=== PATIENT | male | born 1965 | race Caucasian/White ===

== ENCOUNTER → 2018-04-10 13:13 | Outpatient (CLI) | payer MEDICARE, SELFPAY ==
[2018-04-10 13:50] LABS: Basophils % 0.4 % (0.1-2.0); Eosinophils # 0.1 K/mm3 (0.0-0.4); Eosinophils % 1.1 % (0.1-12.0); Hemoglobin 16.7 g/dL (14.1-18.0); Lymphocytes # 1.8 K/mm3 (0.7-4.5); Lymphocytes % 20.6 % (10-50); Mean Corpuscular HGB Conc 32.8 g/dL (31.8-35.4); Mean Corpuscular Hemoglobin 29.6 pg (27.0-31.2); Mean Corpuscular Volume 90.4 fl (80-94); Mean Platelet Volume 8.9 fl (7.4-10.4); Monocytes # 0.5 K/mm3 (0.1-1.0); Monocytes % 5.9 % (1.7-9.3); Neutrophils # 6.2 K/mm3 (1.8-7.8); Neutrophils % 72.2 % (37.0-80.0); Platelet Count 168 K/mm3 (142-424); Red Blood Count 5.64 M/mm3 (4.60-6.20); Red Cell Distribution Width 12.9 % (11.5-17.5); White Blood Count 8.6 K/mm3 (4.8-10.8)
[2018-04-10 14:23] LABS: Alanine Aminotransferase 50 U/L (12-78); Albumin Level 3.9 gm/dL (3.4-5.0); Albumin/Globulin Ratio 1.1 (1.1-1.8); Alkaline Phosphatase 118 U/L (46-116); Anion Gap 17.1 mEq/L (5-15); Aspartate Amino Transferase 36 U/L (15-37); Bilirubin,Total 0.5 mg/dL (0.2-1.0); Blood Urea Nitrogen 8 mg/dL (7-18); Calcium 8.7 mg/dL (8.5-10.1); Carbon Dioxide 24 mmol/L (21.0-32.0); Chloride 102 mmol/L (98-107); Chol/HDL Ratio 10.6 (1-3.5); Cholesterol 223 mg/dL (140-200); Creatinine,Serum 0.82 mg/dL (0.70-1.30); Estimated Glomerular Filt Rate 98 ml/min (>60); GFR (African American) 118 ML/MIN (>60); Globulin 3.7 gm/dl (1.3-3.2); Glucose 302 mg/dL (74-106); HDL Cholesterol 21 mg/dL (27-67); Potassium 4.1 mmoL/L (3.5-5.1); Sodium 139 mmol/L (136-145); Thyroid Stimulating Hormone 1.36 uIU/ml (0.358-3.740); Total Protein,Serum 7.6 gm/dL (6.4-8.2)
[2018-04-10 14:28] LABS: Triglycerides 577 mg/dL (30-200)
[2018-04-10 15:18] LABS: Hemoglobin A1C 8.6 % (0.0-7.0)
[2018-04-11 08:19] LABS: Microalbumin, Urine 15.3 ug/mL (Not Estab.)
== END ==
PROVIDERS: Visit Provider Nurse Practitioner Family
DX: I10 Essential (primary) hypertension (principal); R73.9 Hyperglycemia, unspecified; R53.83 Other fatigue; E55.9 Vitamin D deficiency, unspecified
CPT/HCPCS: 80053; 80061; 82043; 82570; 82652; 83036; 84436; 84443; 85025

== ENCOUNTER → 2018-05-23 07:21 | Outpatient (CLI) | payer MEDICARE, SELFPAY ==
--- NOTE | 2018-05-23 07:22 | NM_ITS ---
History and Indications: Diabetes, hyperlipidemia, tobacco use, family history, chest pain, shortness of breath, Procedure: Patient received a 0.4 mg of intravenous Lexiscan, resting heart rate was 78 blood pressure 153/89, with Lexiscan maximum heart rate achieved was 103 bpm which is less than 85% of the maximum predicted heart rate and a blood pressure was 144/83. With Lexiscan patient complained of shortness of breath Electrocardiogram: Resting electrocardiogram showed sinus rhythm, with Lexiscan there is less than 1.[address] segment depression noted from the baseline EKG. The EKG portion of the Lexiscan Myoview is nondiagnostic. Cardiac stress and resting SPECT images: Cardiac stress and resting SPECT images were obtained using technetium 99 Myoview 29.8 mCi stress and 10.6 mCi at rest. Gated SPECT further analysis of segmental wall motion and calculation of the ejection fraction also done. Cardiac stress and resting SPECT images show uniform myocardial activity without segmental perfusion abnormality, computer derived ejection fraction is 52% with no regional wall motion abnormality, right ventricle is normal size and contractility. Conclusion: 1. The EKG portion of the Lexiscan Myoview is nondiagnostic. 2. No scintigraphic evidence of reversible ischemia seen, computer derived ejection fraction is 52% with no regional wall motion abnormality, right ventricle is normal size and contractility. 3. Normal Lexiscan Myoview study.
--- NOTE | 2018-05-23 07:22 | CA_ITS ---
PROCEDURE: 2-D M-mode and color Doppler study INDICATIONS FOR THE TEST: Chest pain + COPD+ Heart Murmur Tobacco Smoking+ Palpitations Fatigue Syncope Edema Hypertension+Diabetes Mellitus Rheumatic Fever SOB MAN+Obesity Hyperlipidemia+ Family History HD Additional History abn ekg PATIENT INFORMATION HEIGHT: 72 WEIGHT:211 GENDER: Male B/P:142/83 2-D/M-MODE INTERPRETATION: 2-D MEASUREMENTS OBSERVED VALUES IN CMS Right Ventricular Dimension (RVDd) 1.3 Interventricular Septum (Thickness)(IVsd) 1.0 Left Ventricular Internal Dimensions(LVIDd) 5.4 Left Ventricular Posterior Wall (Thickness)(LVPWd) 0.9 Aortic Root 2.2 Aortic Cusp Separation 2.2 Left Atrial Dimensions (LAD) 4.1 2D 1. Left atrium is mildly enlarged, left ventricle is normal size, mild concentric left ventricular hypertrophy, visually estimated ejection fraction 55% with no regional wall motion abnormality. 2. The right atrium and right ventricle are mildly enlarged with normal contractility. 3. The aortic valve is minimally thickened and fibrosed. 4. The mitral and tricuspid valvular grossly normal. 5. The pulmonic valve is poorly visualized. 6. No significant pericardial effusion noted. DOPPLER INTERROGATION: Doppler interrogation of the aortic, mitral and tricuspid valvular presence of mild mitral and tricuspid regurgitation, tricuspid regurgitation jet velocity is inadequate for calculation of the right ventricular systolic pressure, diastolic parameters consistent of grade 1 diastolic dysfunction without tissue Doppler evidence of raised left atrial pressure. CONCLUSION: 1. Mild biatrial enlargement, normal left ventricular size, mild concentric left ventricular hypertrophy, visually estimated ejection fraction 55% with no regional wall motion abnormality, grade 1 diastolic dysfunction seen without tissue Doppler evidence of raised left atrial pressure. 2. Mildly enlarged right ventricle with normal contractility. 3. Mild mitral and tricuspid regurgitation 4. No significant pericardial effusion noted.
--- NOTE | 2018-05-23 07:22 | XR_ITS ---
XR chest 2V HISTORY: ITS.REASON: tobacco user, night sweats ORDERING PHYSICIAN: MYRA Felix PATIENT AGE: 52 years COMPARISON: None FINDINGS: The cardiomediastinal silhouette and pulmonary vascularity are within normal limits. The lungs are clear without infiltrates, suspicious nodules, or pleural effusions. No acute bony abnormalities. IMPRESSION: Negative chest, no acute finding
--- NOTE | 2018-05-23 10:15 | HMH.ITSHM ---
Current Home Medications as stated by this patient Holly Caldwell or billing representative. []METFORMIN GLIPIZIDE LOVASTATIN OMEPRAZOLE LISINOPRIL CARVEDILOL OXYCODONE GABAPENTIN
== END ==
PROVIDERS: PCP Nurse Practitioner Family; Visit Provider Physician Assistant
DX: R06.09 Other forms of dyspnea; R07.9 Chest pain, unspecified; E11.8 Type 2 diabetes mellitus with unspecified complications; E78.5 Hyperlipidemia, unspecified; I10 Essential (primary) hypertension; J44.9 Chronic obstructive pulmonary disease, unspecified; R00.0 Tachycardia, unspecified; G47.9 Sleep disorder, unspecified; R61 Generalized hyperhidrosis; Z82.49 Family history of ischemic heart disease and other diseases of the circulatory system; F17.200 Nicotine dependence, unspecified, uncomplicated
CPT/HCPCS: 71046; 78452; 93017; 93306; A9502; J2785

== ENCOUNTER → 2018-06-30 12:55 | Outpatient (CLI) | payer MEDICARE, SELFPAY | PROVIDERS: PCP Family Medicine; Visit Provider Family Medicine | DX: G47.10 Hypersomnia, unspecified; J44.9 Chronic obstructive pulmonary disease, unspecified; G47.33 Obstructive sleep apnea (adult) (pediatric) | CPT/HCPCS: G0399 ==

== ENCOUNTER 2020-12-18 15:55 | Emergency (ER) | payer MEDICARE, SELFPAY ==
[2020-12-18 15:57] VITALS: BP 113/59; PULSE 105; RESP 22; TEMP 37.9; O2SAT 92; BMI 29.5
[2020-12-18 17:19] VITALS: BP 0/0; PULSE 0; RESP 0; TEMP -17.7; TEMP 0; O2SAT 0
== END 2020-12-18 17:22 | disposition left against medical advice (07) ==
PROVIDERS: Emergency Provider Nurse Practitioner Family
DX: Z53.21 Procedure and treatment not carried out due to patient leaving prior to being seen by health care provider (principal)

== ENCOUNTER 2024-08-14 09:37 | Outpatient (CLI) | payer MEDICARE, SELFPAY ==
--- OUTSIDE RECORDS SUMMARY | 2024-08-14 09:42 | XMS_ITS | Data Portability ---
Author Organization [place] - [facility] [place] [facility] MARTIN Cooley ADMIN Address [address] [place] [id number] Assessment Encounter Date Assessment Date Assessment LastModified by Organization Details LastModified Time 04/16/2024 04/16/2024 Patient presented with chronic pain in multiple areas. The patient has chronic lower back pain localized to the low back/lumbar spine with referred symptoms into their hips and sometimes down their lower extremities.He also has chronic neck. His PCP prescribes him 15 mg Oxycodone Referral: Kiki Khan PMH - DM, DM neuropathy, COPD, chronic pain, arthritis, prior lumbar decompression surgery Images reviewed Xrays: Xrays: MRI: CT abdomen 11/2022: multilevel moderate degenerative disc disease, facet hypertrophy. Appears to be prior L4/5 and L5/S1 laminectomy Plan 04/16/2024 Today, I discussed with the patient about my current findings based on their history and/or physical exam. They have multiple pain generators, however I will treat their pain in a stepwise plan as outlined below. 1. #left Sacroiliac Joint Pain, Chronic worsening -Patient has >3 provocative exam maneuvers which include + cyndie's finger, LUBA, thigh thrust, compression, distraction, Gaenslen's -patient has Not completed physical therapy in many years. I will refer patient to physical therapy at this time. I will also perform an injection to his left SI joint for which I think he would benefit prior to starting physical therapy. patient did not have any hip pain with passive or active range of motion. No crepitus appreciated with range of motion - Risks and benefits were discussed with the patient. The patient wishes to proceed with the injection. -Will schedule left diagnostic SI joint injection under flouroscopic guidance -If significant short term relief >75% on two occasions but no sustained relief consider SI joint ablation. Other options included posterior stabilization/fu florentin or lateral percutaneous fixation/fusion. 2. #Postlaminectomy Syndrome, Chronic worsening #Chronic Pain -Symptoms in the axial low back and b/l lower extremity(s) - So far, Tx's tried/failed or contraindicated: --> Spine surgery: > 10 years prior L4/5 and L5/S1 laminectomy -->Physical therapy: >6wks without any relief --> Medications: opioids, NSAIDs, Tylenol, lidocaine patches, Cymbalta -->Injections: LESI's, RFAs -->Psychological therapy -Plan ---- we will plan to place a Surgical consult/referral for assessment of surgical indications once the patient has obtained lumbar MRI and has failed conservative therapy again. If surgery is not indicated, then I will continue the appropriate work up for SCS trial. I gave him information regarding SCS /neuromodulator information to the patient today ----Consult to Pain Psychology we will be placed if the patient would like to move forward with the SCS trial --- lumbar x-rays and MRI ordered today for ongoing low back and radicular pain after his spine surgery. patient will follow up once MRI has been completed. Patient is to call and notify me when he is scheduled to have it so that I can send him a Valium to take before the MRI 3. #Axial Neck Pain, Chronic worsening #Cervical Spondylosis # cervical spinal stenosis #Facetogenic pain - patient has Not completed physical therapy in many years. I will refer patient to physical therapy at this time. I will also perform an injection to his left SI joint for which I think he would benefit prior to starting physical therapy. - I am obtaining cervical x-rays today for ongoing neck pain that seems to be more axial but does have some referred symptoms to his shoulders. I think he may also benefit from obtaining a cervical MRI since she sometimes has a wobbly gait per the patient, but I do not experienced that today on my exam. He does not have any cervical myelopathy symptoms appreciated my physical exam today - I also went ahead and ordered a cervical MRI which I think the patient we will benefit from. Patient is to call and notify me when he is scheduled to have it so that I can send him a Valium to take before the MRI [email or web address] Not available 04/16/2024 12:26:09 Plan of Treatment Reminders Order Date Submit Date Provider Last Modified By Organization Details Last Modified Time Details Appointments None recorded. Lab None recorded. Referral physical therapist referral - please evaluate and treat 2024 025 [email or web address] 1 [facility], [address], [place], [id number], 5 13:48:00 Procedures injection, sacroiliac joint (PROC) - 36843 left DX SIJ injection 2024 025 [email or web address] 9 Adnrea Casimiro DO, [address], [address], [place], [address], 09:59:56 Surgeries None recorded. Imaging MRI, lumbar spine, w/wo contrast - please evaluate for spondylothe sis, b/l pars defect, central and neuroforami nal stenosis, and angular stability, MODIC changes [address] (Scheduling), [address] [place], [address], 5 08:16:58 MRI, cervical spine, w/o contrast [address] - Central Scheduling, [address], [address], [place], [address], 5 08:16:58 XR, cervical spine, 2 or 3 view - please evaluate for spondylothe sis, b/l pars defect and angular stability [address] - Central Scheduling, [address], [address], [place], [address], 5 08:16:58 XR, lumbar spine, 2 view - please evaluate for spondylothe sis, b/l pars defect and angular stability [address] (Scheduling), [address] [place], [address], 5 11:36:44 Medication Orders None recorded. Patient TargetsNo targets recorded. Patient InstructionsNo instructions recorded. Reason for Referral Physical Therapist Referral for Stenosis of spinal canal due to intervertebral disc please evaluate and treat Referring Physician: Andrea Guerrero, Pain Management, Encounter Date: 04/16/2024 Problems Name Problem SNOMED Code Status Onset Date Resolution Date Notes Provider Name and Address Organization Details Recorded Time Lumbar spondylosis 671328474 Active 2024 ANDREA GUERRERO [address], [id number], [facility] [place] 5 09:36:06 Stenosis of spinal canal due to intervertebral disc 487498020 Active 2024 ANDREA GUERRERO [address], [address] [place] [address], [facility] [place] 5 09:39:11 Inflammation of sacroiliac joint 54748621 Active 2024 ANDREA GUERRERO [address], [address] [place] [address], [facility] [place] 5 09:40:11 Spinal stenosis in cervical region 48649367 Active 2024 ANDREA GUERRERO [address], [address] [place] [address], [facility] [place] 5 12:25:36 Problem Notes None recorded. Medical Equipment None Reported. Medications Name Sig Start Date Stop Date Status Note LastModified by Organization Details LastModified Time nystatin 100,000 unit/mL oral suspension SWISH AND SWALLOW 10 ML 3 TIMES EACH DAY FOR 10 DAYS active Not Available Not Available No t Available sertraline 100 mg tablet TAKE 1 TABLET 1 TIME EACH DAY active Not Available Not Available No t Available glipizide ER 5 mg tablet, extended release 24 hr TAKE 1 TABLET 2 TIMES EACH DAY active Not Available Not Available No t Available amitriptyline 50 mg tablet TAKE 1 TABLET 1 TIME EACH DAY AT BEDTIME active Not Available Not Available No t Available carvedilol 3.125 mg tablet TAKE 1 TABLET 2 TIMES EACH DAY active Not Available Not Available No t Available levothyroxine 25 mcg tablet TAKE 1 TABLET ONCE A DAY IN THE MORNING ON AN EMPTY STOMACH active Not Available Not Available No t Available oxycodone 15 mg tablet TAKE 1 TABLET 3 TIMES EACH DAY FOR CHRONIC BACK PAIN. MAY TAKE 1/2 TABLET EXTRA EACH DAY NEEDED active Not Available Not Available No t Available tamsulosin 0.4 mg capsule TAKE 1 CAPSULE 1 TIME EACH DAY AT BEDTIME active Not Available Not Available No t Available gabapentin 800 mg tablet TAKE 1 TABLET IN THE MORNING, TAKE 1 TABLET MIDDAY. TAKE 2 TABLETS AT BEDTIME. active Not Available Not Available No t Available erythromycin 5 mg/gram (0.5 %) eye ointment PLACE A 1/3 INCH LENGTH OF OINTMENT INTO THE LOWER EYELID OF THE AFFECTED EYE 3 TIMES EACH DAY FOR 10 DAYS active Not Available Not Available No t Available omeprazole 20 mg capsule,delaye d release TAKE 1 CAPSULE 1 TIME EACH DAY active Not Available Not Available No t Available lisinopril 5 mg tablet TAKE 1 TABLET 1 TIME EACH DAY active Not Available Not Available No t Available pioglitazone 30 mg tablet TAKE 1 TABLET 1 TIME EACH DAY active Not Available Not Available No t Available ondansetron [address] 1 TABLET UNDER THE TONGUE AND ALLOW TO DISSOLVE 3 TIMES EACH DAY active Not Available Not Available No t Available sertraline 50 mg tablet TAKE 1 TABLET 1 TIME EACH DAY active Not Available Not Available No t Available tobramycin 0.3 %-dexamethason e 0.1 % eye drops,suspensi on PLACE 1 DROP INTO THE AFFECTED EYE(S) EVERY 4 HOURS FOR 5 DAYS active Not Available Not Available No t Available rosuvastatin 20 mg tablet TAKE 1 TABLET 1 TIME EACH DAY active Not Available Not Available No t Available rosuvastatin 40 mg tablet TAKE 1 TABLET 1 TIME EACH DAY active Not Available Not Available No t Available testosterone 20.25 mg/1.25 gram per pump act.(1.62 %) transdermal gel APPLY 1 PUMP 1 TIME EACH DAY IN THE MORNING TO SHOULDER, UPPER ARMS OR ABDOMEN active Not Available Not Available No t Available BD Insulin Syringe Ultra-Fine 0.3 mL 31 gauge x 5/16 USE TO INJECT INSULIN DIRECTED UP TO 3 TIMES EACH DAY active Not Available Not Available No t Available Vitals Date Recorded Body weight Body temperature Oxygen saturation Oxygen saturation in Arterial blood by Pulse oximetry Heart rate Systolic blood pressure Diastolic blood pressure Provider Name and Address Organization Details Last Updated DateTime 5 15075.3 2 g 97.9 [degF] 96 % 96 % 106 /min 148 mm[Hg] 82 mm[Hg] Elida Olsen [place] - [facility] [place] [facility] [place] 09:09:04 Social History None recorded. Functional Status None recorded. Mental Status None recorded. Family History Nothing Reported. Medical History No medical history recorded. Past Encounters Encounter ID Performer Location Encounter Start Date Encounter Closed Date Diagnosis/Indication Diagnosis SNOMED-CT Code Diagnosis ICD10 Code Diagnosis Note [id number] ANDREA GUERRERO DO [facility] [address] [place] [id number] 04/16/2024 09:03:32 04/16/2024 09:45:35 Post-laminectomy syndrome 81107673 M96.1 Low back pain 316201971 M54.50 Lumbar spondylosis 54515 0009 M47.896 Cervical spondylosis 387 052841 M47.812 Stenosis o f spinal canal due to intervertebral disc 892075051 M99.53 Inflammati on of sacroiliac joint 34591397 M46.1 Spinal eddie nosis in cervical region 13629602 M48.02 Health Concerns Section Related Observation LastModified by Organization Detai ls LastModified Time None Recorded Concern Status LastModified by Organization Details LastModified Time None Recorded Advance Directives Directive None Recorded Payers Encounter Date Sequence Insurance Name Policy Number Policy Zamudio Covered Member ID Zamudio Member ID Guarantor Name 04/16/2024 1 [place]ICARE[place] Holly Caldwell [id number] Holly Caldwell Notes Date Note Type Note Provider Name and Address Organization Details Recorded Time 04/16/2024 text/html Patient presente d with chronic pain in multiple areas. The patient has chronic lower back pain localized to the low back/lumbar spine with referred symptoms into their hips and sometimes down their lower extremities.He also has chronic neck. His PCP prescribes him 15 mg Oxycodone Referral: Kiki Antoine- DM, DM neuropathy, COPD, chronic pain, arthritis, prior lumbar decompression surgery {{DATE 04/16/2024}} : Initial complaint: Neck/cervical spine, low back and leg pain 1. Low back and hip/leg pain Onset: {{1 - 2 months 3 - 4 months 5 months >6 months 1 year 1 - 2 years 2 - 3 years >3 years >5 years > 8 years >10 years*}} Pain Location: {{upper back mid back lower back* buttocks}},{{ right left* b/l}}{{ hip(s) thigh(s) kne e(s) LE's* ankle(s) foot feet}}, hips Course: {{progressing over several days constant over several days progressing over several months to a year constant over several months to a year progressing over several years* constant over several years}} Pain Quality: sharp, dull, deep, tingling, numbness, weakness, throbbing Pain Intensity: {{1 2 3 4 5 6 7 8* 9 10}} / 10 Aggravating Factors: prolong standing, prolong sitting, leaning forward, leaning backwards, lying flat, riding in cars for long periods, lifting heavy objects Alleviating Factors: rest, nothing, Percocet Associated Symptoms: {{foot drop numbness tingl ing*}} referring to {{right left b/l*}} {{UE LE* shoulder t rapezius elbow fing er(s) thumb hip(s) buttock(s) lateral thigh medial thigh anterior thigh posterior LE knee(s) feet laure t great toe}} 2. Neck/cervical spine Onset: {{1 - 2 months 3 - 4 months 5 months >6 months 1 year 1 - 2 years 2 - 3 years >3 years >5 years* > 8 years >10 years}} Pain Location: head, neck, and shoulders Course: {{progressing over several days constant over several days progressing over several months to a year constant over several months to a year progressing over several years* constant over several years}} Pain Quality: sharp, dull, achy, deep, tingling, stiffness Pain Intensity: {{1 2 3 4 5 6 7 8* 9 10}} / 10 Aggravating Factors: prolong rest, prolong sitting, looking backwards, lying flat, riding in cars for long periods, rotating and lateral bending head movements, looking down to text on their phone Alleviating Factors: movement, walking, sometimes bending their head forward, heat, ice, NSAIDS Associated Symptoms: occasional referred symptoms into their shoulders -Patient currently denies saddle anesthesia, bowel/bladder incontinence, worsening/progressi ve weakness.-Functiona l Goals of Treatment: Reduce the pain level by 50% or more and restore function/mobility/q uality of life. Current Medication:Opioids: {{None Tramadol Hyd rocodone 5 Hydrocodone 7.5 Hydrocodone 10 Oxycodone 5 Oxycodone 7.5 Oxycodone 10 dilaudid morphin e 15 morphine 30 methadone suboxo ne fentanly patch Codeine Oxyco done 15#}}NSAIDS: {{None ibuprofen* M eloxicam naproxen d iclofenac celecoxib Ketorolac mefenami c acid etoricoxib ind omethacin}}Muscle Relaxers:{{None met hocarbamol* carisop rodol chlorzoxazone cyclobenzaprine or phenadrine metaxalo ne dantrolene baclo fen}}Others: {{lidocaine patch tylenol Gabap entin* Lyrica Cymba lta}} Previous Pain Medications:Opioids : {{None Tramadol Hyd rocodone 5 Hydrocodone 7.5 Hydrocodone 10 Oxycodone 5 Oxycodone 7.5 Oxycodone 10* dilaudid morphi ne 15 morphine 30 methadone suboxo ne fentanly patch Codeine}}NSAI DS: {{None ibuprofen* n aproxen diclofenac celecoxib Ketorolac mefenamic acid etoricoxib ind omethacin}}Muscle Relaxers:{{None* me thocarbamol carisop rodol chlorzoxazone cyclobenzaprine or phenadrine metaxalo ne dantrolene baclo fen}}Others: {{lidocaine patch* tylenol Lisa pentin Lyrica}} Previous Non-Interventional Treatment:{{heat/ic e, NSAIDS, TENS unit, lidocaine patch, chiroprator, PT, home exercise routine heat/ice, NSAIDS, TENS unit, lidocaine patch#}} Interventions/Consu lts:-Neurosurgery: {{none cervical tho racic lumbar tavares ctomy, fusion multilevel fusion multiple spinal surgeries anterior cervical fusion discectomy K yphoplasty scoliosi s surgery Lumbar interbody fusion lumbar laminectomy#}}-Orth opedics: {{none right left T KIM TKA* joint replacement tib/fib Fx ankle surgery shoulder surgery reverse shoulder surgery amputation} }-Interventional pain: previous injection-Podiatry: {{none* foot surgery}} Smoking: {{yes* no quit recently quite >10 years ago}}Diabetes: {{no DM 1 DM2*}}A1C: {{<5.7 5.7 - 6 6.1 - 7 7.1 - 7.9 >8 unknown*}} Anticoagulation: {{None* Warfarin Ap ixaban (eliquis) rivaroxab an(Xarelto) fondapa rinux}}Antiplatelet s: {{None* ASA Clopido grel (plavix) ticagrelor (Brilinta) cilostaz ol dipyridamole pra sugrel (Effient)}} Work Status: {{employed unemploy ed* retired disabil ity}} ANDREA GUERRERO, DO [address] [place] [address], [phone], [facility] 04/16/2024 12:26:35
[2024-08-14 10:06] LABS: Basophils % 0.4 % (0.1-2.0); Eosinophils # 0.1 Kmm3 (0.0-0.4); Eosinophils % 1.4 % (0.1-12.0); Hematocrit 47.4 % (42.0-52.0); Hemoglobin 15.7 g/dL (14.1-18.0); Lymphocytes # 2.7 K/mm3 (0.7-4.5); Lymphocytes % 29.6 % (10-50); Mean Corpuscular HGB Conc 33.1 g/dL (31.8-35.4); Mean Corpuscular Hemoglobin 29.4 pg (27.0-31.2); Mean Corpuscular Volume 88.8 fl (80-94); Monocytes # 0.7 K/mm3 (0.1-1.0); Monocytes % 7.6 % (1.7-9.3); Neutrophils # 5.5 K/mm3 (1.8-7.8); Neutrophils % 60.8 % (37.0-80.0); Nucleated Red Blood Cells # 0 10^3/uL; Nucleated Red Blood Cells % 0 %; Platelet Count 166 K/mm3 (142-424); Red Blood Count 5.34 M/mm3 (4.60-6.20); Red Cell Distribution Width 13.2 % (11.5-17.5); Red Cell Distribution Width-SD 42.7 fL
[2024-08-14 10:46] LABS: Alanine Aminotransferase 28 U/L (12-78); Albumin Level 3.9 g/dl (3.5-5.0); Alkaline Phosphatase 77 U/L (38-126); Anion Gap 7.4 mEq/L (5-15); Aspartate Amino Transferase 39 U/L (17-59); Bilirubin,Direct 0.2 mg/dl (0.0-0.4); Bilirubin,Indirect 0.4 mg/dL (0.0-0.9); Bilirubin,Total 0.6 mg/dl (0.2-1.3); Bilirubin,Unconjugated 0.5 mg/dL (0.0-1.1); Blood Urea Nitrogen 11 mg/dl (9-20); Calcium 9.2 mg/dl (8.4-10.2); Carbon Dioxide 33 mmol/L (22.0-30.0); Chloride 105 mmol/L (98-107); Chol/HDL Ratio 3.6 (1-3.5); Cholesterol 111 mg/dl (140-200); Estimated Glomerular Filt Rate 115 ml/min (>60); GFR (African American) 139 ML/MIN (>60); Glucose 198 mg/dl (74-100); HDL Cholesterol 31 mg/dl (40-60); Magnesium 1.8 mg/dl (1.6-2.3); Potassium 4.4 mmoL/L (3.5-5.1); Sodium 141 mmol/L (136-145); Total Protein,Serum 7.5 g/dl (6.3-8.2); Triglycerides 167 mg/dl (30-150); VLDL Cholesterol 33 mg/dL (0-40)
[2024-08-14 10:57] LABS: Direct LDL Cholesterol 52.34 mg/dL (100-129)
[2024-08-14 11:02] LABS: Free T4 (Free Thyroxine) 1.26 ng/dl (0.78-2.19)
[2024-08-14 11:16] LABS: Thyroid Stimulating Hormone 1.36 uIU/mL (0.465-4.68)
== END 2024-08-14 23:59 | disposition home or self-care (01) ==
LOC: LAB 09:40
PROVIDERS: PCP Emergency Medicine; Visit Provider Nurse Practitioner Family
DX: E78.5 Hyperlipidemia, unspecified (principal); R00.2 Palpitations; I11.9 Hypertensive heart disease without heart failure; I20.9 Angina pectoris, unspecified; E11.8 Type 2 diabetes mellitus with unspecified complications; F17.210 Nicotine dependence, cigarettes, uncomplicated; Z79.84 Long term (current) use of oral hypoglycemic drugs; Z79.4 Long term (current) use of insulin
CPT/HCPCS: 36415; 80048; 80061; 80076; 83735; 84439; 84443; 85025; 93270

== ENCOUNTER 2025-03-24 08:09 | Outpatient (CLI) | payer MEDICARE, SELFPAY ==
--- NOTE | 2025-03-24 | CA_ITS ---
APPROVED REPORT Exam: Pharmacologic Technologist: Tosha Heredia Stress Nurse: Padmaja COLEMAN, RN Ht: 6 ft 0 in Wt: 237 lbs BSA: 2.29 m2 HR: 102 bpm BP: 132/87 mmHg Indications: Shortness of breath, Chest pain Stress Test Details Test: Lexiscan HR Resting HR: 102 bpm Max Heart Rate (APMHR): 159.277155 bpm Max HR Achieved: 113 bpm Target HR (85% APMHR): 135.477740 bpm % of APMHR: 71.07 Recovery HR: 102 bpm BP Resting BP: 132.0/87.0 mmHg Max BP: 182.0/80.0 mmHg Recovery BP: 139.0/83.0 mmHg ECG Resting ECG: Sinus rhythm Stress ECG Conclusion Lungs clear to auscultation prior to test start. Symptoms: None Arrhythmias/Ectopy: PAC ST-T Changes: Less than 0.[address] segment changes. Electronically signed by : Chitra Stauffer MD 03/29/2025 13:20:38
--- NOTE | 2025-03-24 08:00 | NM_ITS ---
APPROVED REPORT Exam: Nuclear Stress Test Indication: Chest pain, SOB, Palpitations, Fatigue, HTN, DM, High cholesterol, Tobacco use Patient Location: Outpatient Stress Tech: Tosha Heredia SC Tech:Alberta Quiroga, ARRT, RT (R)(N) Ht: 6 ft 0 in Wt: 240 lbs HR: 102 bpm BP: 132/87 mmHg BSA: 2.30 m2 TID: 1.29 History: Chest pain, SOB, Palpitations, Fatigue, HTN, DM, High cholesterol, Tobacco use Procedure: Patient received 0.4 mg of intravenous Lexiscan, resting heart rate 102 bpm, resting blood pressure 132/87 mmHg, with Lexiscan maximum heart rate achieved was 113 bpm which is % of the maximum predicted heart rate and blood pressure was 152/80 mmHg. With Lexiscan, patient denied any complaint of chest pain. Cardiac Stress and Resting SPECT Images: Cardiac Stress and Resting SPECT images were obtained using technetium 99m Myoview 31.6 mCi stress and 10.51 mCi at rest. Resting and stress imaging in supine and prone positions demonstrate no evidence of fixed or reversible perfusion defects. There is increase in transient ischemic dilatation ratio (TID 1.29), which may be suggestive of possible multivessel disease or balanced ischemia. Gated imaging demonstrates normal global LV systolic function. LVEF is calculated at 55%. Conclusion: No evidence of fixed or reversible perfusion defects. There is increase in transient ischemic dilatation ratio (TID 1.29), which may be suggestive of possible multivessel disease or balanced ischemia. Gated imaging demonstrates normal global LV systolic function. LVEF is calculated at 55%. Electronically signed by : Chitra Stauffer MD 03/29/2025 13:04:49
[2025-03-24 09:30] VITALS: BP 132/87; PULSE 102; RESP 16
[2025-03-24] MEDS: SODIUM CHLORIDE 0.9% 10ML SYR (RAD ONLY) 10 ML IV ×2 (09:35→09:36)
[2025-03-24] MEDS: ISOTOPE MYOVIEW (PER STUDY) 1 DOSE IV (09:35)
[2025-03-24] MEDS: DEFINITY US ECHO CONTRAST 2ML INJ 2 MG IV (10:09)
== END 2025-03-24 23:59 | disposition home or self-care (01) ==
LOC: RAD 08:10
PROVIDERS: PCP Emergency Medicine; Visit Provider Nurse Practitioner Family
DX: I49.1 Atrial premature depolarization (principal); I10 Essential (primary) hypertension; E11.9 Type 2 diabetes mellitus without complications; E78.00 Pure hypercholesterolemia, unspecified; R94.39 Abnormal result of other cardiovascular function study; Z72.0 Tobacco use
CPT/HCPCS: 78452; 93017; 93018; 93306; A9502; J2785; Q9957